=== PATIENT | female | born 1980 | race Asian ===

== ENCOUNTER 2017-12-28 09:59 | Emergency (ER) | payer OTHER ==
[~2017-12-28] VITALS: Ht 154.9 cm; Wt 53.1 kg
[2017-12-28 10:15] VITALS: Ht 154.9 cm; Wt 53.1 kg
[2017-12-28 12:25] VITALS: BP 120/75
== END 2017-12-28 12:25 | disposition home or self-care (01) ==
LOC: ED 09:59
DX: J01.90 Acute sinusitis, unspecified (principal); R51 Headache; Z88.8 Allergy status to other drugs, medicaments and biological substances; Z88.1 Allergy status to other antibiotic agents
CPT/HCPCS: Q0162